=== PATIENT | male | born 1950 | race African-American/Black ===

== ENCOUNTER 2020-05-29 14:27 | Outpatient (CLI) | payer MEDICARE, MEDICAID | END 2020-05-29 14:28 | disposition home or self-care (01) | LOC: CSHULT 14:27 | PROVIDERS: ATTEND Internal Medicine | DX: E04.2 Nontoxic multinodular goiter (principal) | CPT/HCPCS: 76536 ==

== ENCOUNTER 2022-05-31 08:51 | Outpatient (CLI) | payer MEDICARE, MEDICAID | END 2022-05-31 08:52 | disposition home or self-care (01) | LOC: CSHMRI 08:51 | PROVIDERS: ATTEND Urology | DX: R97.20 Elevated prostate specific antigen [PSA] (principal); Z98.890 Other specified postprocedural states | CPT/HCPCS: 72197; 82565 ==